=== PATIENT | male | born 1965 | race Caucasian/White ===

== ENCOUNTER 2017-04-14 08:58 | Emergency (ER) | payer SELFPAY ==
[~2017-04-14] VITALS: Ht 182.9 cm; Wt 78.0 kg
[2017-04-14 09:45] VITALS: BP 130/78
== END 2017-04-14 12:11 | disposition home or self-care (01) ==
LOC: ER 09:17 → EDBD 09:17 → ER 12:11
DX: F20.9 Schizophrenia, unspecified (principal)
CPT/HCPCS: 99283